=== PATIENT | female | born 1955 | race Caucasian/White ===

== ENCOUNTER 2017-03-02 12:32 | Emergency (ER) | payer BC ==
[~2017-03-02] VITALS: Ht 157.5 cm; Wt 75.5 kg
[~2017-03-02 12:32] MED LIST: ATARAX OR; BENT20TA OR; LEVO150T OR; LOPR50TA OR; NORT25CA2 OR; REME15TA OR; SM I100T PO; ZYPR5TAB OR
[2017-03-02] MEDS ORDERED: NS 500 ML IV ONE (12:45)
[2017-03-02] MEDS ORDERED: TEMA15CA2 (12:49)
[2017-03-02] MEDS ORDERED: LORA-376 (12:49)
[2017-03-02] MEDS ORDERED: ATOR40TA (12:49)
[2017-03-02] MEDS ORDERED: TRAM50TA2 (12:49)
--- NOTE | 2017-03-02 13:13 | REP ---
CT Head without contrast HISTORY: Altered mental status COMPARISON: MR 07/23/2016 Areas of decreased attenuation are present in the periventricular and subcortical white matter. There is no intraparenchymal hemorrhage, acute infarct, mass or midline shift. The ventricular system is normal in appearance. There is no extra cerebral collection. There is no fracture. The visualized sinuses are clear. Soft tissue swelling is present over the left frontal and parietal bones. IMPRESSION: Small vessel ischemic disease. Signed by Cesar Alcantar MD 03/02/2017 01:04 P
--- NOTE | 2017-03-02 13:28 | REP ---
Portable chest x-ray: Sitting AP view. History: Altered mental status. Findings: EKG monitoring electrodes overlie the chest. Lungs are well inflated and clear. Heart is not enlarged. Pulmonary vasculature is not increased. No significant bony abnormality is seen. Impression: No active disease. Signed by Jcaob Nettles MD 03/02/2017 06:26 P
[2017-03-02 13:46] LABS: BASO % 0.7 % (0.0-1.0); EOS # 0.2 K/mm3 (0.0-0.50); EOS % 2.4 % (0.0-3.0); LARGE UNSTAINED CELL # 0.1 K/mm3 (0.0-0.4); LARGE UNSTAINED CELL % 1.4 % (0.0-4.0); LYMPH # 1.6 K/mm3 (1.5-4.5); LYMPH % 25.9 % (24.0-44.0); MEAN CORPUSCULAR HEMOGLOBIN 28.5 pg (27.0-33.0); MEAN CORPUSCULAR HGB CONC 34.4 g/dl (32.0-36.5); MEAN CORPUSCULAR VOLUME 82.7 fl (80.0-96.0); MONO # 0.3 K/mm3 (0.0-0.8); MONO % 5.4 % (0.0-5.0); NEUTROPHILS # 3.9 K/mm3 (1.8-7.7); NEUTROPHILS % 64.2 % (36.0-66.0); PLATELET COUNT, AUTOMATED 244 k/mm3 (150-450); RED CELL DISTRIBUTION WIDTH 12.8 % (11.5-14.5)
[2017-03-02 14:07] LABS: ALBUMIN 3.6 GM/DL (3.2-5.2); ALBUMIN/GLOBULIN RATIO 1.33 (1.00-1.93); ALKALINE PHOSPHATASE 167 U/L (45-117); ALT/SGPT 30 U/L (12-78); ANION GAP 6 MEQ/L (8-16); AST/SGOT 22 U/L (15-37); BILIRUBIN,DIRECT < 0.1 MG/DL (0.0-0.2); BILIRUBIN,TOTAL 0.4 MG/DL (0.2-1.0); BLOOD UREA NITROGEN 8 MG/DL (7-18); CALCIUM LEVEL 8.5 MG/DL (8.8-10.2); CARBON DIOXIDE LEVEL 28 MEQ/L (21-32); CHLORIDE LEVEL 106 MEQ/L (98-107); GLOMERULAR FILTRATION RATE > 60.0 (>45); GLUCOSE, FASTING 103 MG/DL (80-110); POTASSIUM SERUM 3.5 MEQ/L (3.5-5.1); SODIUM LEVEL 140 MEQ/L (136-145); TOTAL PROTEIN 6.3 GM/DL (6.4-8.2)
[2017-03-02 14:49] LABS: METHADONE URINE NEGATIVE (NEGATIVE)
[2017-03-02 14:57] VITALS: BP 156/72
--- NOTE | 2017-03-03 04:58 | ECGEPIP ---
Stationary ECG Study [facility] - ED Test Date: 2017-03-02 Pat Name: ESTEVAN EVANS Department: Room: - Gender: F Mobile Phone Salesperson: MARY : 1955 Requested By: DONNIE BASURTO Order Number: [id number] Reading MD: Xavier Jean Baptiste Measurements Intervals [place] Rate: 81 P: 27 DC: 168 QRS: 25 QRSD: 93 T: 56 QT: 383 QTc: 446 Interpretive Statements SINUS RHYTHM Electronically Signed On 03-03-2017 4:57:42 EDT by Xavier Jean Baptiste
== END 2017-03-02 15:06 | disposition home or self-care (01) ==
LOC: EDBD 12:32 → M ED 13:56
DX: R56.9 Unspecified convulsions (principal); I10 Essential (primary) hypertension; E03.9 Hypothyroidism, unspecified; E78.00 Pure hypercholesterolemia, unspecified; J44.9 Chronic obstructive pulmonary disease, unspecified; Z95.1 Presence of aortocoronary bypass graft; Z98.84 Bariatric surgery status
CPT/HCPCS: 70450; 71010; 80048; 80076; 80306; 81001; 82550; 82553; 83605; 84443; 85025; 93005; 93041; 94760; 99285; G0480

== ENCOUNTER → 2018-12-21 | Outpatient (REF) | payer BC ==
[~2018-12-21] MED LIST changes: +ATOR40TA75; +LORA0.5T11; +TEMA15CA2; +TRAM50TA2
[2018-12-21 19:47] LABS: BASO # 0.1 10^3/uL (0.0-0.2); BASO % 1.5 % (0.0-1.0); EOS # 0.7 10^3/uL (0.0-0.50); EOS % 8.3 % (0.0-3.0); HEMATOCRIT 39.5 % (36.0-47.0); HEMOGLOBIN 12.7 g/dl (12.0-15.5); LYMPH # 3.9 10^3/uL (1.5-4.5); LYMPH % 47.6 % (24.0-44.0); MEAN CORPUSCULAR HEMOGLOBIN 26.2 pg (27.0-33.0); MEAN CORPUSCULAR HGB CONC 32.2 g/dl (32.0-36.5); MEAN CORPUSCULAR VOLUME 81.4 fl (80.0-96.0); MONO # 0.6 10^3/uL (0.0-0.8); MONO % 7.9 % (0.0-5.0); NEUTROPHILS # 2.8 10^3/uL (1.8-7.7); NEUTROPHILS % 34.3 % (36.0-66.0); PLATELET COUNT, AUTOMATED 302 10^3/uL (150-450); RED BLOOD COUNT 4.85 10^6/uL (4.00-5.40); WHITE BLOOD COUNT 8.1 10^3/uL (4.0-10.0)
[2018-12-21 20:13] LABS: ALBUMIN 3.9 GM/DL (3.2-5.2); ALT/SGPT 17 U/L (12-78); BILIRUBIN,TOTAL 0.3 MG/DL (0.2-1.0); BLOOD UREA NITROGEN 11 MG/DL (7-18); CALCIUM LEVEL 8.7 MG/DL (8.8-10.2); CARBON DIOXIDE LEVEL 27 MEQ/L (21-32); CHLORIDE LEVEL 103 MEQ/L (98-107); GLOMERULAR FILTRATION RATE > 60.0 (>45); GLUCOSE, FASTING 86 MG/DL (70-100); POTASSIUM SERUM 4.2 MEQ/L (3.5-5.1); RHEUMATOID FACTOR QUANT < 10.0 IU/ML (<15.0); SODIUM LEVEL 137 MEQ/L (136-145); TOTAL PROTEIN 6.2 GM/DL (6.4-8.2)
[2018-12-21 20:14] LABS: FOLATE 9.2 NG/ML; TOTAL 25(OH) VITAMIN D 13.9 NG/ML (30.0-100.0)
[2018-12-21 20:21] LABS: ERYTHROCYTE SEDIMENTATION RATE 2 mm/hr (0-30)
[2018-12-21 20:41] LABS: HEMOGLOBIN A1c 5.7 %
[2018-12-23 11:04] LABS: VITAMIN B12 LEVEL 437 PG/ML (232-1245)
[2018-12-23 12:51] LABS: ALBUMIN 3.97 GM/DL (3.29-5.55); ALBUMIN % 64.1 % (55.8-66.1); ALPHA-1-GLOBULIN % 4.9 % (2.9-4.9); ALPHA-2-GLOBULINS 0.76 GM/DL (0.42-0.99); ALPHA-2-GLOBULINS % 12.3 % (7.1-11.8); BETA-1-GLOBULINS % 7.5 % (4.7-7.2); BETA-2-GLOBULINS % 3.3 % (3.2-6.5); GAMMA GLOBULIN % 7.9 % (11.1-18.8)
[2018-12-23 12:52] LABS: BETA-1-GLOBULINS 0.47 GM/DL (0.28-0.60); GAMMA GLOBULINS 0.49 GM/DL (0.65-1.58)
[2018-12-26 16:35] LABS: ANCA-ATYPICAL <1:20 titer (Neg:<1:20); ANTI DOUBLE STRAND-DNA AB <1 IU/mL (0-9); ANTINUCLEAR ANTIBODIES DIRECT Negative (Negative); CERULOPLASMIN 26.8 mg/dL (19.0-39.0); COPPER PLASMA 122 ug/dL (72-166); CYTOPLASMIC NEUTROP AB ANCA-C <1:20 titer (Neg:<1:20); LEAD BLOOD ADULT 1 ug/dL (0-4); MERCURY LEVEL None Detected ug/L (0.0-14.9); PERINUCLEAR AB ANCA-P <1:20 titer (Neg:<1:20); SJOGREN'S ANTI SS-A <0.2 AI (0.0-0.9); SJOGREN'S ANTI SS-B <0.2 AI (0.0-0.9); VITAMIN B1 LEVEL WHOLE BLOOD 126.1 nmol/L (66.5-200.0); VITAMIN B6,PYRIDOXAL PHOSPHATE 15.9 ug/L (2.0-32.8)
[2018-12-27 14:16] LABS: VITAMIN E(ALPHA TOCOPHEROL) 13.8 mg/L (9.0-29.0); VITAMIN E(GAMMA TOCOPHEROL) 0.4 mg/L (0.5-4.9)
== END ==
LOC: M LABNEURO 17:13
PROVIDERS: ATTEND Psychiatry & Neurology Neurology
DX: G31.84 Mild cognitive impairment of uncertain or unknown etiology (principal); R42 Dizziness and giddiness

== ENCOUNTER 2024-08-03 15:17 | Emergency (ER) | payer BC, MEDICARE ==
[~2024-08-03] VITALS: Ht 160 cm; Wt 76.7 kg
[~2024-08-03 15:17] MED LIST changes: -LORA0.5T11; +LORA0.5T5
[2024-08-03 16:08] LABS: BASO # 0.1 10^3/uL (0.0-0.2); BASO % 1.5 % (0.0-1.0); EOS # 0.1 10^3/uL (0.0-0.5); EOS % 1.8 % (0.0-3.0); HEMATOCRIT 34.2 % (36.0-47.0); HEMOGLOBIN 11.1 g/dl (12.0-15.5); LYMPH # 1.1 10^3/uL (1.5-5.0); LYMPH % 18.4 % (24.0-44.0); MEAN CORPUSCULAR HEMOGLOBIN 23.7 pg (27.0-33.0); MEAN CORPUSCULAR HGB CONC 32.5 g/dl (32.0-36.5); MEAN CORPUSCULAR VOLUME 73.1 fl (80.0-96.0); MONO # 0.5 10^3/uL (0.0-0.8); MONO % 8.1 % (2.0-8.0); NEUTROPHILS # 4.3 10^3/uL (1.5-8.5); NEUTROPHILS % 69.7 % (36.0-66.0); PLATELET COUNT, AUTOMATED 532 10^3/uL (150-450); RED BLOOD COUNT 4.68 10^6/uL (4.00-5.40); WHITE BLOOD COUNT 6.2 10^3/uL (4.0-10.0)
[2024-08-03 16:36] LABS: BLOOD UREA NITROGEN 7 MG/DL (9-23); CALCIUM LEVEL 9.7 MG/DL (8.3-10.6); CARBON DIOXIDE LEVEL 25 MMOL/L (20-31); CHLORIDE LEVEL 98 MMOL/L (98-107); GLOMERULAR FILTRATION RATE > 60.0 (>39); GLUCOSE, FASTING 119 MG/DL (74-106); POTASSIUM SERUM 4.4 MMOL/L (3.5-5.1); SODIUM LEVEL 130 MMOL/L (136-145)
[2024-08-03 16:39] LABS: FREE T4 1.17 NG/DL (0.89-1.76); THYROID STIMULATING HORMONE 3.496 uIU/ML (0.55-4.78)
[2024-08-03] MEDS ORDERED: ISOVUE-370 76% 100ML VIAL As Ordered ONE (16:45)
[2024-08-03 16:53] LABS: LIPASE 33 U/L (12-53)
[2024-08-03 16:55] LABS: ALKALINE PHOSPHATASE 167 U/L (46-116); ALT/SGPT 26 U/L (7.0-40); AST/SGOT 15 U/L (<34); BILIRUBIN,DIRECT 0.1 MG/DL (<0.4); BILIRUBIN,TOTAL 0.4 MG/DL (0.3-1.2); TOTAL PROTEIN 6.9 G/DL (5.7-8.2)
[2024-08-03] MEDS: NS 1,000 ML IV SCH (17:05)
[2024-08-03] MEDS: ONDANSETRON 4MG 2ML VIAL IV ONE (17:05)
[2024-08-03] MEDS: DULoxetine 30MG CAPSULE (CYMBALTA) PO ONE (18:42)
[2024-08-03 19:07] VITALS: BP 120/82; TEMP 99; O2SAT 95
== END 2024-08-03 19:15 | disposition home or self-care (01) ==
LOC: EDBD 15:17 → M ED 15:17
DX: R11.10 Vomiting, unspecified (principal); I10 Essential (primary) hypertension; F41.9 Anxiety disorder, unspecified; Z79.899 Other long term (current) drug therapy
CPT/HCPCS: 74177; 80048; 80076; 83690; 84439; 84443; 85025; 93005; 96361; 96374; 99284; J2405; Q9967